=== PATIENT | male | born 1995 | race Asian ===

== ENCOUNTER 2016-11-07 16:10 | Emergency (ER) | payer OTHER ==
[~2016-11-07] VITALS: Ht 170.2 cm; Wt 74.5 kg
[~2016-11-07 16:10] MED LIST: ACET500C5 PO; IBUP400T22 PO
[2016-11-07 16:11] VITALS: Ht 170.2 cm; Wt 74.5 kg
--- NOTE | 2016-11-07 16:40 | ERA ---
ER Documentation Chief Complaint Date/Time DATE: 11/07/16 TIME: 16:36 Chief Complaint right leg pain/injury HPI 21-year-old male with a chief complaint of right knee pain. Patient has had similar symptoms in the past that have resolved spontaneously. 3 years status post ACL repair without complication. Patient has not taken any medications to relieve the symptoms. Pain is worse with movement and with palpation per history. 0 out of 10 while still and 5 out of 10 with moving the affected extremity. Patient has no other complaints and describes no other associated manifestations. Nursing notes have been reviewed and are consistent with history given. ROS All systems reviewed and are negative except as per history of present illness. Medications Home Meds Active Scripts Ibuprofen* (Motrin*) 400 Mg Tab, 400 MG PO Q6H Y for PAIN AND OR ELEVATED TEMP, #30 TAB Prov:BRITTANY PATINO PA-C 09/27/15 Acetaminophen* (Tylophen*) 500 Mg Capsule, 1 CAP PO Q6H Y for PAIN AND OR ELEVATED TEMP, #20 CAP Prov:SHADI DONOHUE 10/02/14 Allergies Allergies: Coded Allergies: No Known Allergy (Unverified , 10/02/14) PMhx/Soc History of Surgery: Yes (ACL REPAIR RIGHT KNEE) Anesthesia Reaction: No Hx Neurological Disorder: No Hx Respiratory Disorders: No Hx Cardiac Disorders: No Hx Psychiatric Problems: No Hx Miscellaneous Medical Probl: No Hx Alcohol Use: Yes (SOCIAL DRINKER) Hx Substance Use: No Hx Tobacco Use: No Physical Exam Vitals Vital Signs Date Time Temp Pulse Resp B/P Pulse Ox O2 Delivery O2 Flow Rate FiO2 11/07/16 16:11 97.6 65 19 137/65 99 Physical Exam Const: Well-appearing 21-year-old male in no acute distress sitting on the gurney with initial presentation Head: Atraumatic Eyes: Normal Conjunctiva ENT: Normal External Ears, Nose and Mouth. Neck: Full range of motion..~ No meningismus. Resp: Clear to auscultation bilaterally Cardio: Regular rate and rhythm, no murmurs Abd: Soft, non tender, non distended. Normal bowel sounds Skin: No petechiae or rashes Back: No midline or flank tenderness Ext: 3-4 mm sized bony prominence just medial to the tibial tuberosity that is tender to palpation. Full range of motion. Pain with active range of motion. No pain with passive range of motion. Neur: Awake and alert. Ambulates normally with gross examination. Psych: Normal Mood and Affect Procedures/MDM Well-appearing 21-year-old male in no acute distress presenting with a chief complaint of right knee pain as described in the history and physical examination., X-ray was obtained, read by the radiologist, given the following impression: Unremarkable Patient refused pain medications in the emergency department. At this time I have little suspicion for bony pathology or neurovascular compromise. However, I am unable to rule out soft tissue injuries. I have recommended that the patient follow-up with orthopedics in the next week. Patient states he has an orthopedic doctor and does not need a referral list. I have also recommended that he follow-up with his PCP in the next 1-3 days for a more thorough evaluation for such/chronic management. I have recommended [id number] ibuprofen for discomfort. I have spoke with the patient regarding their condition and future management. They have verbally responded that they understand their status and treatment plan. The patients vitals are stable, and their current condition is appropriate for discharge. The patient will be given discharge instructions with return precautions. Departure Diagnosis: Primary Impression: Knee pain Qualified Code: M25.561 - Acute pain of right knee Condition: Stable Additional Instructions: Follow up with your PCP within the next 1-3 days for a more thorough evaluation and a possible referral to a specialist. Return the the emergency department immediately if symptoms worsen or change. If you have any questions regarding medications, ask your pharmacist or us before you leave. If any adverse reactions occur while taking your medications, discontinue the treatment and return to the emergency department immediately. Take your medications as directed, and complete the entire course of treatment. BOB FAIRCHILD PA-C Nov 07, 2016 16:40
--- NOTE | 2016-11-07 17:25 | RADRPT ---
PROCEDURE: RIGHT knee x-ray CLINICAL INDICATION: trauma TECHNIQUE: AP, lateral and tunnel views of the knee were obtained. COMPARISON: None FINDINGS: There is normal mineralization. No acute fracture or dislocation is seen. There is no joint effusion. There are no significant degenerative changes. There is no significant soft tissue swelling. IMPRESSION: No evidence of fracture. Physician Zeyad Date Time Electronically viewed and signed by Physician Zeyad on 11/07/2016 17:24 /
== END 2016-11-07 17:58 | disposition home or self-care (01) ==
LOC: FTE 16:10
DX: M25.561 Pain in right knee (principal)
CPT/HCPCS: 73562; Z7502